=== PATIENT | female | born 2000 ===

== ENCOUNTER 2019-03-31 22:13 | Emergency (ER) | payer OTHER ==
[~2019-03-31] VITALS: Ht 165.1 cm; Wt 99.8 kg
[~2019-03-31 22:13] MED LIST: Prozac20 MG PO
[2019-04-01] MEDS ORDERED: ALBU90OI INH (01:17)
[2019-04-01] MEDS ORDERED: Prednisone20 MG PO (01:17)
== END 2019-04-01 01:27 | disposition home or self-care (01) ==
LOC: ER 22:13
DX: J40 Bronchitis, not specified as acute or chronic (principal); J06.9 Acute upper respiratory infection, unspecified; F41.9 Anxiety disorder, unspecified; Z88.8 Allergy status to other drugs, medicaments and biological substances; F17.210 Nicotine dependence, cigarettes, uncomplicated
CPT/HCPCS: 71046; 99283-25

== ENCOUNTER 2019-05-02 13:30 | Emergency (ER) | payer OTHER ==
[~2019-05-02] VITALS: Ht 160 cm; Wt 99.8 kg
[~2019-05-02 13:30] MED LIST changes: +ALBU90OI INH; +Prednisone20 MG PO
== END 2019-05-02 15:44 | disposition home or self-care (01) ==
LOC: ER 13:30
DX: S61.511A Laceration without foreign body of right wrist, initial encounter (principal); S00.03XA Contusion of scalp, initial encounter; S00.83XA Contusion of other part of head, initial encounter; S40.012A Contusion of left shoulder, initial encounter; S40.812A Abrasion of left upper arm, initial encounter; S40.811A Abrasion of right upper arm, initial encounter; Z88.8 Allergy status to other drugs, medicaments and biological substances; Z79.899 Other long term (current) drug therapy; V49.40XA Driver injured in collision with unspecified motor vehicles in traffic accident, initial encounter
CPT/HCPCS: 70110; 73030; 99284-25